=== PATIENT | male | born 2000 | race Two or more races ===

== ENCOUNTER 2024-08-05 16:42 | Emergency (ER) | payer OTHER ==
[~2024-08-05] VITALS: Ht 175.3 cm; Wt 71.2 kg
[2024-08-05] MEDS ORDERED: KETOROLAC TROMETHAMINE 60 MG VIAL IM STA (17:31)
[2024-08-05] MEDS ORDERED: DEXAMETHASONE SODIUM PHOSPHATE 4 MG/ML VIAL IM STA (17:32)
[2024-08-05] MEDS ORDERED: KETOROLAC TROMETHAMINE 60 MG VIAL IM ONE (17:52)
[2024-08-05] MEDS ORDERED: DEXAMETHASONE SODIUM PHOSPHATE 4 MG/ML VIAL ONE (17:53)
== END 2024-08-05 20:43 | disposition home or self-care (01) ==
LOC: ER 16:42
DX: R07.81 Pleurodynia (principal)